=== PATIENT | male | born 1955 | race Caucasian/White ===

== ENCOUNTER → 2020-11-13 | Outpatient (CLI) | payer BC ==
--- NOTE | 2020-11-13 14:57 | MR ---
EXAMINATION TYPE: MR brain wo con DATE OF EXAM: 11/13/2020 COMPARISON: NONE HISTORY: 65-year-old male R20.0, Slurred speech, numbness in right side face and arm TECHNIQUE: Multiplanar, multisequence images of the brain and brainstem were acquired without IV con trast. Diffusion weighted imaging is performed. FINDINGS: No evidence for acute infarction, hemorrhage, mass, mass effect, midline shift, herniation, effacemen t of basal cisterns, or extra-axial fluid collection. A couple foci of T2 shine through noted on the left. There is mild to moderate generalized cerebral cortical volume loss. There is loss of the normal right ICA flow void. Reconstitution of the supraclinoid portion of the ri ght ICA. T2/FLAIR weighted sequences show mild to moderate scattered foci of bright white matter change and buchanan bcortical and deep white matter regions of posterior hemispheres numbering approximately 20-25 on the right and 15 on the left. Midline structures demonstrate normal morphology. The craniocervical junction is normal. Nasal septal deviation. Mastoid air cells are well pneumatized. Orbits and globes are intact. IMPRESSION: 1. Loss of the right ICA flow void suggests a more proximal right ICA occlusion. There is reconstitut ion of the supraclinoid portion of the right ICA. Recommend further evaluation with CTA head and neck . 2. Moderate cerebral cortical atrophy and mild to moderate scattered burden of chronic small vessel i schemic disease.
== END | disposition home or self-care (01) ==
LOC: RADMRIMAIN 11:37
PROVIDERS: ATTEND Family Medicine
DX: I67.82 Cerebral ischemia (principal); G31.9 Degenerative disease of nervous system, unspecified
CPT/HCPCS: 70551

== ENCOUNTER → 2020-11-27 | Outpatient (CLI) | payer BC | END | disposition home or self-care (01) | LOC: RADCTMAIN 07:17 | PROVIDERS: ATTEND Family Medicine | DX: I65.29 Occlusion and stenosis of unspecified carotid artery (principal) ==

== ENCOUNTER → 2020-12-08 | Outpatient (CLI) | payer BC ==
--- NOTE | 2020-12-08 15:08 | CT ---
EXAMINATION TYPE: CT angio head neck DATE OF EXAM: 12/08/2020 COMPARISON: Correlation MRI brain 11/13/2020 HISTORY: 65-year-old male I 6 5.29, Occlusion and stenosis of unspecified carotid TECHNIQUE: Contiguous axial scanning of the head and neck performed with IV Contrast, patient injecte d with 65 mL of Isovue 370. Coronal/sagittal MIP reconstructions performed. 3-D reconstructions gener ated on a dedicated independent workstation. CT DLP: 299.4 mGycm Automated exposure control for dose reduction was used. FINDINGS: NECK: Minimal atherosclerotic arch calcifications. Bovine configuration to the aortic arch. The vertebral arteries are codominant and patent throughout the course. The right common carotid artery is patent. There is complete occlusion of the right ICA just beyond its origin. The left common carotid artery is patent. There is severe, 80-90% stenosis left ICA just above its origin extending 1.3 cm. The remainder of th e left ICA is patent. 9 mm hypodense nodule right lobe of the thyroid gland. Dedicated thyroid ultrasound to further evalua te. HEAD: There are vertebral and basilar arteries are patent. Patent bilateral posterior communicating arterie s. Remainder of the posterior circulation is patent. Scattered mild atherosclerotic calcification left carotid siphon without any significant narrowing. There is reconstitution of the supraclinoid right ICA. Somewhat hypoplastic A1 segment right anterior cerebral artery. Anterior circulation otherwise patent. No aneurysmal change is seen. Dural venous sinuses are patent. IMPRESSION: Neck: 1. Proximal right ICA occlusion just beyond its origin. 2. Severe, 80-90% stenosis proximal left ICA just above its origin spanning 1.3 cm. 3. Incidental bovine configuration to the aortic arch. 4. 9 mm hypodense right thyroid lobe nodule. Dedicated thyroid ultrasound could further evaluate. Head: 5. Reconstitution of the supraclinoid right ICA. 6. Hypoplastic A1 segment right anterior cerebral artery. Prominent and patent bilateral posterior co mmunicate arteries. 7. Otherwise, no significant stenosis or aneurysmal change is seen.
== END | disposition home or self-care (01) ==
LOC: RADCTMAIN 11:07
PROVIDERS: ATTEND Family Medicine
DX: I65.22 Occlusion and stenosis of left carotid artery (principal); E04.1 Nontoxic single thyroid nodule; Q28.3 Other malformations of cerebral vessels; Q25.49 Other congenital malformations of aorta
CPT/HCPCS: 70496; 70498; Q9967

== ENCOUNTER → 2021-10-22 | Outpatient (CLI) | payer BC ==
--- NOTE | 2021-10-22 11:35 | FL ---
EXAMINATION TYPE: FL barium swallow DATE OF EXAM: 10/22/2021 CLINICAL HISTORY: Dysphagia for 3 months. Weight loss. History of recent stroke one year earlier. TECHNIQUE: A double contrast esophagram is performed utilizing air and barium. A total of 22 second s of fluoroscopic time was utilized during procedure and 75 images obtained COMPARISON: None FINDINGS: The esophagus shows mild dilatation mid segment and delayed emptying into the stomach. No proximal diverticulum. Distal esophagus has mucosal irregularity and mild narrowing over a segment ro ughly 2 vertebra in length. There is visualization of normal mucosa just above the diaphragm. No sign ificant gastroesophageal reflux was seen during real time performance of this study. IMPRESSION: Mucosal mass or neoplasm is strongly suspected in the distal esophagus. Advise GI referr al and endoscopy for further evaluation and sampling. Perfectserve notification performed at time of dictation to ordering physician.
== END | disposition home or self-care (01) ==
LOC: RADUSWWP 10:59
PROVIDERS: ATTEND Family Medicine
DX: R13.10 Dysphagia, unspecified (principal)
CPT/HCPCS: 74220

== ENCOUNTER 2021-11-12 11:48 | Day surgery (SDC) | payer BC ==
[2021-11-08 13:19] VITALS: BMI 24.2
[~2021-11-12 11:48] MED LIST: LACTATED RINGERS 1,000 ML IV SCH; LIDOCAINE 1% (10MG/ML) FOR IV START INTRADERMA PRN
[2021-11-12 12:20] VITALS: TEMP 97.8
[2021-11-12] MEDS ORDERED: PROPOFOL 10 MG/ML 20 ML VIAL IV ONE (12:42)
[2021-11-12] MEDS ORDERED: LIDOCAINE 2% INJ 20 MG/ML (2 ML VIAL) ONE (12:42)
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
--- NOTE | 2021-11-12 12:55 | P.OP ---
Date of Procedure: 11/12/21 Preoperative Diagnosis: Dysphagia Postoperative Diagnosis: Lower esophageal mass suspicious of esophageal cancer Procedure(s) Performed: EGD Anesthesia: MAC Surgeon: Tello Carrasco Pathology: other (Esophageal biopsy) Condition: stable Disposition: PACU Description of Procedure: The patient's placed on the endoscopy table in the lateral position. He received IV sedation. The gastroscope placed oropharynx passed into the esophagus. In the lower third of the esophagus there was a mass seen. The sco pe was slowly advanced into the stomach. Scope was through the pylorus. The first and second portion of the duodenum appeared normal. Scope was then brought back the antrum and this appeared minimally inflamed and a biopsies performed. Scope was unretroflexed and the patient was was seen to have a hiatal hernia. The scope was then brought back. There was an esophageal mass in the lower third of the esophagus. The area was biopsied. The mass appeared friable. The lesion measured approximately 40 cm to 27 cm in the lower esophagus. The proximal esophagus appeared normal. Scope withdrawn for patient.
[2021-11-12 13:19] VITALS: BP 143/85; PULSE 85; RESP 16
== END 2021-11-12 13:47 | disposition home or self-care (01) ==
LOC: ORWHC2ENDO 11:48
PROVIDERS: ATTEND Surgery
DX: C16.0 Malignant neoplasm of cardia (principal); K44.9 Diaphragmatic hernia without obstruction or gangrene; E78.5 Hyperlipidemia, unspecified; Z86.73 Personal history of transient ischemic attack (TIA), and cerebral infarction without residual deficits; Z79.82 Long term (current) use of aspirin; Z79.899 Other long term (current) drug therapy; Z87.891 Personal history of nicotine dependence; N40.0 Benign prostatic hyperplasia without lower urinary tract symptoms; G89.29 Other chronic pain; M54.9 Dorsalgia, unspecified
CPT/HCPCS: 88305; 43239; J2704; J2001; 88342

== ENCOUNTER → 2021-11-30 | Outpatient (CLI) | payer BC ==
--- NOTE | 2021-12-01 23:29 | PE ---
EXAMINATION TYPE: PET CT fusion skull to thigh DATE OF EXAM: 11/30/2021 COMPARISON: NONE HISTORY: Newly diagnosed esophageal cancer. TECHNIQUE: Following the intravenous administration of 12.3 mCi of F-18 FDG, whole body images are p erformed from the skull base to the midthigh. Images are reviewed on the computer in the coronal, ax ial, and sagittal planes. Reconstructed rotating images are created on independent workstation and r eviewed on the computer. A localization and attenuation correction CT is performed in conjunction w ith the PET scan. Blood glucose level equals 84 SCAN: Initial Scan FINDINGS: SKULL BASE AND NECK: Hypermetabolic bilateral supraclavicular adenopathy is felt present with areas of increased hypermetabolic uptake in suspicious lymph notes. For reference there is 2.1 x 1.6 cm lym ph node axial image 56, max SUV is 4.16. CHEST, MEDIASTINUM, AND HILAR REGION: Moderate to severe wall thickening in the distal esophagus belo w the kiesha extends to the diaphragm with abnormal hypermetabolic uptake, Max SUV is 11.07 on axial image 108. There is adjacent hypermetabolic prominent lymph node next to aorta on axial image 98 sonja uring 2.6 x 1.2 cm, max SUV is 4.67. Additional areas of abnormal wall thickening and hypermetabolic uptake in the proximal esophagus near thoracic inlet axial image 60 and smaller focus near aortic arc h axial image 76. Multi focal esophageal neoplasm cannot be excluded. Multiple scattered small nonspecific subcentimeter nodules could reflect early metastatic disease. Cu rrently ametabolic. ABDOMEN AND PELVIS: Innumerable heterogeneous hypodense hypermetabolic masses throughout the liver co nsistent with diffuse metastatic disease. Largest right hepatic lobe axial image 133 measures 4.5 cm long axis, max SUV is 6.98. There are multiple hypermetabolic enlarged retroperitoneal lymph, for reference there is 2.9 x 1.7 cm left periaortic lymph node axial image 165, max SUV is 7.17. OSSEOUS STRUCTURES: No abnormal hypermetabolic osseous lesions. OTHER CT: Coronary artery calcifications present. Patient has little fat. Enlarged prostate consisten t with BPH is seen. IMPRESSION: Possible multicentric esophageal neoplasm. Abnormal supraclavicular area and thoracic mabar nopathy. There is hepatic metastatic disease along with abnormal abdominal retroperitoneal adenopathy .
== END | disposition home or self-care (01) ==
LOC: RADXRMAIN 13:35
PROVIDERS: ATTEND Internal Medicine Hematology & Oncology
DX: C78.7 Secondary malignant neoplasm of liver and intrahepatic bile duct (principal); C15.5 Malignant neoplasm of lower third of esophagus
CPT/HCPCS: 78815; A9552